=== PATIENT | male | born 1985 | race Caucasian/White ===

== ENCOUNTER 2016-07-02 17:39 | Emergency (ER) | payer OTHER ==
[2016-07-02 17:46] VITALS: TEMP 98.1; O2SAT 97
[2016-07-02] MEDS ORDERED: ONDANSETRON DISINTEGRATING 4 MG TAB PO ONE (18:07)
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
[2016-07-02] MEDS ORDERED: IOPAMIDOL (ISOVUE-300) 100 ML BTL IV ONE (18:57)
[2016-07-02 18:59] LABS: % IMMATURE GRANULYOCYTES 0.2 % (0.0-1.1); ABSOLUTE IMMATURE GRANULOCYTES 0.02 10^3/uL (0.00-0.10); ADD DIFF? NO; ADD MORPH? NO; ADD SCAN? NO; ATYPICAL LYMPHOCYTE FLAG 0 (0-99); FRAGMENT RBC FLAG 0 (0-99); HEMATOCRIT 48.8 % (40.0-51.0); HEMOGLOBIN 17.1 g/dL (13.7-17.5); LEFT SHIFT FLG 0 (0-99); LIPEMIA HEMOLYSIS FLAG 90 (0-99); MEAN CELL HEMOGLOBIN 31.1 pg (27.9-34.1); MEAN CELL VOLUME 88.7 fL (81.5-99.8); PLATELET CLUMPS FLAG 20 (0-99); PLATELET COUNT 235 10^3/uL (150-400); RED CELL DISTRIBUTION WIDTH 12.1 % (11.5-15.2)
[2016-07-02] MEDS ORDERED: HYDROmorphONE/DILAUDID 1 MG/ML SYR IVP ONE (19:24)
[2016-07-02 19:30] LABS: ANION GAP 11 mEq/L (8-16); CALCIUM 9.9 mg/dL (8.5-10.4); CARBON DIOXIDE 21 mEq/l (22-31); CHLORIDE 108 mEq/L (97-110); CREATININE 0.9 mg/dL (0.7-1.3); GLOMERULAR FILTRATION RATE > 60; GLUCOSE 89 mg/dL (70-100); SODIUM 140 mEq/L (134-144)
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
--- NOTE | 2016-07-02 20:14 | CT ---
Please see prior dictation of CT chest with contrast for findings related to CT of the abdomen and pe lvis in this patient.
--- NOTE | 2016-07-02 20:14 | CT ---
Please see prior dictation of CT chest with contrast for findings related to CT of the abdomen and pe lvis in this patient.
--- NOTE | 2016-07-02 20:14 | CT ---
Please see prior dictation of CT chest with contrast for findings related to CT of the abdomen and pe lvis in this patient.
[2016-07-02 20:15] VITALS: BP 126/66; PULSE 69; RESP 15
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
[2016-07-02] MEDS ORDERED: HYDROCOD/APAP 5/325 PREPACK#6 BTL TAKEHOME ONE (20:44)
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
== END 2016-07-02 20:54 | disposition home or self-care (01) ==
DX: S16.1XXA Strain of muscle, fascia and tendon at neck level, initial encounter (principal); S29.012A Strain of muscle and tendon of back wall of thorax, initial encounter; S39.012A Strain of muscle, fascia and tendon of lower back, initial encounter; S80.211A Abrasion, right knee, initial encounter; S79.922A Unspecified injury of left thigh, initial encounter; S49.92XA Unspecified injury of left shoulder and upper arm, initial encounter; V49.19XA Passenger injured in collision with other motor vehicles in nontraffic accident, initial encounter; Y92.410 Unspecified street and highway as the place of occurrence of the external cause
CPT/HCPCS: 82947-QW; 96374; J1170; Q9967

== ENCOUNTER 2016-07-08 02:30 | Emergency (ER) | payer OTHER ==
[2016-07-08] MEDS ORDERED: HYDROCOD/APAP 5/325 PREPACK#6 BTL TAKEHOME ONE (04:20)
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
== END 2016-07-08 04:35 | disposition home or self-care (01) ==
DX: M79.604 Pain in right leg (principal)

== ENCOUNTER 2018-02-05 05:03 | Emergency (ER) | payer SELFPAY ==
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
[2018-02-05] MEDS ORDERED: IBUPROFEN 600 MG TAB PO ONE (08:17)
[2018-02-05] MEDS ORDERED: PENICILLIN VK 500 MG TAB PO ONE (08:17)
[2018-02-05 08:53] VITALS: BP 132/92
== END 2018-02-05 08:52 | disposition home or self-care (01) ==
DX: K04.7 Periapical abscess without sinus (principal)

== ENCOUNTER 2018-02-14 23:49 | Emergency (ER) | payer SELFPAY ==
[2018-02-14 23:52] VITALS: BP 152/100
[2018-02-15] MEDS ORDERED: CLINDAMYCIN 150MG PREPACK#6 BTL TAKEHOME ONE (00:01)
[2018-02-15] MEDS ORDERED: CLINDAMYCIN 150 MG CAP PO ONE (00:01)
--- NOTE | 2018-02-15 00:06 | EDPHY ---
H & P Stated Complaint: tooth infection Time Seen by Provider: 02/14/18 23:53 HPI/ROS: HPI The patient presents with recurrent tooth pain present over the last 2-3 days. As the patient was seen in the emergency department recently for dental abscess. He was started on penicillin. He followed up with the dentist and was told he has an impacted wisdom tooth in his lower right. He has made arrangements for follow-up in about 3 weeks for extraction. However over the last 2-3 days he has had worsening tooth pain after finishing his course of penicillin. He does not have any fevers or chills. He does feel an area of swelling in the area. He does not have any difficulty swallowing. REVIEW OF SYSTEMS 10 systems were reviewed and negative with the exception of the elements mentioned in the history of present illness. PMHx: Healthy Soc Hx: Works at a [employer] PHYSICAL General Appearance: Alert, no distress Eyes: Pupils equal and round no pallor or injection ENT, Mouth: Right lower molars with caries, there is erythema along the gum line of the buccal surface of the mandible on the right with no areas of fluctuance Respiratory: Breathing comfortably Neurological: A&O, moves all extremities Skin: Warm and dry, no rashes Musculoskeletal: Neck is supple non tender Extremities: symmetrical, full range of motion Psychiatric: Patient is oriented X 3, there is no agitation Source: Patient Exam Limitations: No limitations - Personal History Current Tetanus/Diphtheria Vaccine: Unsure Current Tetanus Diphtheria and Acellular Pertussis (TDAP): Unsure - Medical/Surgical History Hx Asthma: No Hx Chronic Respiratory Disease: No Hx Diabetes: No Hx Cardiac Disease: No Hx Renal Disease: No Hx Cirrhosis: No Hx Alcoholism: No Hx HIV/AIDS: No Hx Splenectomy or Spleen Trauma: No Other PMH: DENIES - Social History Smoking Status: Heavy smoker Constitutional: Initial Vital Signs Temperature (C) 36.5 C 02/14/18 23:50 Heart Rate 92 02/14/18 23:50 Respiratory Rate 16 02/14/18 23:50 Blood Pressure 152/100 H 02/14/18 23:50 O2 Sat (%) 94 02/14/18 23:50 O2 Delivery Mode Room Air Allergies/Adverse Reactions: morphine Allergy (Verified 07/02/16 17:46) Home Medications: Medication Instructions Recorded Penicillin V Potassium [Penicillin 500 mg PO QID #28 tablet 02/05/18 VK] Clindamycin HCl [Clindamycin] 300 mg PO TID #30 cap 02/15/18 Medical Decision Making Differential Diagnosis: 32-year-old male with recurrent dental abscess despite course of penicillin. He is not systemically ill, he does not have any trismus or concern for deep space neck infection. I will treat him with clindamycin. He will call the dentist to arrange for follow-up. - Data Points Medications Given: Discontinued Medications Clindamycin (Clindamycin) 300 mg PO EDNOW ONE PRN Reason: Protocol Stop: 02/15/18 00:02 Last Admin: 02/15/18 00:13 Dose: 300 mg Clindamycin (Cleocin 150 Mg Prepack#6) 1 btl TAKEHOME EDNOW ONE PRN Reason: Protocol Stop: 02/15/18 00:02 Last Admin: 02/15/18 00:13 Dose: 1 btl Departure - Departure Disposition: Home, Routine, Self-Care Clinical Impression: Tooth abscess Condition: Good Instructions: Clindamycin (By mouth), Dental Abscess (ED) Referrals: [facility] [Outside] - As per Instructions Prescriptions: Clindamycin HCl [Clindamycin] 300 mg PO TID #30 cap
== END 2018-02-15 00:16 | disposition home or self-care (01) ==
DX: K04.7 Periapical abscess without sinus (principal); F17.200 Nicotine dependence, unspecified, uncomplicated

== ENCOUNTER 2018-03-07 00:04 | Emergency (ER) | payer SELFPAY ==
[2018-03-07 00:08] VITALS: BP 147/89
--- NOTE | 2018-03-07 00:18 | EDPHY ---
H & P Stated Complaint: RIGHT LOWER TOOTH PAIN, JUST FINISHED 2 WKS ABX Time Seen by Provider: 03/07/18 00:18 HPI/ROS: HPI CHIEF COMPLAINT: Right lower jaw line dental pain. HISTORY OF PRESENT ILLNESS: 33-year-old male, otherwise healthy denies any significant medical history however has been suffering from dental pain of his right lower jaw. He has been on clindamycin multiple times. He is due to follow up with his dentist next week for dental extraction. States completely recent antibiotic course. However over the last 24 hr had progression worsening of swelling and pain to the right lower jaw line right posterior 2nd molar. Patient requesting to be placed back on clindamycin. He states has worked well for him. Past Medical History: Denies significant medical Past Surgical History: Denies significant surgical history Social History: Denies drugs alcohol. Daily smoker. Family History: Noncontributory ROS REVIEW OF SYSTEMS: 10 Systems were reviewed and negative with the exception of the elements mentioned in the history of present illness. Exam Constitutional triage nursing summary reviewed, vital signs reviewed, awake/ alert. Eyes normal conjunctivae and sclera, EOMI, PERRLA. HENT oropharynx, no signs of Khang's, no [employer], no signs of significant oropharyngeal infection however his does to palpation over the 2nd right lower molar. No significant gumline abscess. normal inspection, atraumatic, moist mucus membranes, no epistaxis, neck supple/ no meningismus, no raccoon eyes. Respiratory clear to auscultation bilaterally, normal breath sounds, no respiratory distress, no wheezing. Cardiovascular rate normal, regular rhythm, no murmur, no edema, distal pulses normal. Gastrointestinal soft, non-tender, no rebound, no guarding, normal bowel sounds, no distension, no pulsatile mass. Genitourinary no CVA tenderness. Musculoskeletal no midline vertebral tenderness, full range of motion, no calf swelling, no tenderness of extremities, no meningismus, good pulses, neurovascularly intact. Skin pink, warm, & dry, no rash, skin atraumatic. Neurologic awake, alert and oriented x 3, AAOx3, moves all 4 extremities equally, motor intact, sensory intact, CN II-XII intact, normal cerebellar, normal vision, normal speech. Psychiatric normal mood/affect. Heme/Lymph/Immune no lymphadenopathy. Differential Diagnosis: Includes but is not limited to in a particular order acute dental pain, dental infection, Aveolitis, pulpitis, apical abscess Medical Decision Making: Plan for this patient recommend he has close follow- up with dentistry. Recommend not smoking. Clindamycin take-home pack. Clindamycin prescription. He understands take this with food, and eat a probiotics or yogurt. I do recommend he stop smoking. Return precautions discussed return if worsening swelling, pain, fever. Patient understands this. Source: Patient - Personal History Current Tetanus/Diphtheria Vaccine: Yes Current Tetanus Diphtheria and Acellular Pertussis (TDAP): Yes - Medical/Surgical History Hx Asthma: No Hx Chronic Respiratory Disease: No Hx Diabetes: No Hx Cardiac Disease: No Hx Renal Disease: No Hx Cirrhosis: No Hx Alcoholism: No Hx HIV/AIDS: No Hx Splenectomy or Spleen Trauma: No Other PMH: DENIES - Social History Smoking Status: Heavy smoker Constitutional: Initial Vital Signs Temperature (C) 36.7 C 03/07/18 00:07 Heart Rate 89 03/07/18 00:07 Respiratory Rate 18 03/07/18 00:07 Blood Pressure 147/89 H 03/07/18 00:07 O2 Sat (%) 99 03/07/18 00:07 O2 Delivery Mode Room Air Allergies/Adverse Reactions: morphine Allergy (Verified 07/02/16 17:46) Home Medications: Medication Instructions Recorded Clindamycin HCl [Clindamycin] 300 mg PO TID #21 cap 03/07/18 Departure - Departure Disposition: Home, Routine, Self-Care Clinical Impression: Pain, dental Condition: Good Instructions: Toothache (ED) Additional Instructions: 1. Antibiotics as prescribed 2. Do not smoke. 3. Return if worse. Referrals: NONE *PRIMARY CARE P,. [Primary Care Provider] - As per Instructions [facility] [Outside] - As per Instructions [facility] [Outside] - As per Instructions [facility] [Outside] - As per Instructions Dental [facility] [Outside] - As per Instructions Dental [facility] [Outside] - As per Instructions Prescriptions: Clindamycin HCl [Clindamycin] 300 mg PO TID #21 cap
[2018-03-07] MEDS ORDERED: CLINDAMYCIN 150MG PREPACK#6 BTL TAKEHOME ONE (00:21)
== END 2018-03-07 00:33 | disposition home or self-care (01) ==
DX: K08.89 Other specified disorders of teeth and supporting structures (principal); F17.200 Nicotine dependence, unspecified, uncomplicated

== ENCOUNTER 2018-03-26 19:56 | Emergency (ER) | payer SELFPAY ==
[2018-03-26 20:09] VITALS: BP 144/95
--- NOTE | 2018-03-26 20:20 | EDPHY ---
H & P Stated Complaint: c/o weak/feeling less mentally acute x 1 week, also c/o calf cramping today Time Seen by Provider: 03/26/18 20:19 HPI/ROS: HPI: This is a 33-year-old male who presents with Chief Complaint: c/o weak/feeling less mentally acute x 1 week, also c/o calf cramping today Location: Body Quality: Weakness Duration: 1 week Signs and Symptoms: No bleeding, no radiation, no numbness, no weakness, no tingling, no incontinence, no decreased range of motion, no swelling, no pain, no fever, no fever, no cough, no chest, headache, no dizziness Timing: Gradual onset, daily Severity: [id number] Context: Patient reports that for the last week he has felt generalized body weakness, less mentally acute, bilateral leg cramping right greater than left. He moved to the area 2 months ago. Works at [employer]. No primary care provider. He has felt warm but has no fever, chills. Denies leg swelling. Modifying Factors: None Comment: ROS: A comprehensive 10 system review of systems is otherwise negative aside from elements mentioned in the history of present illness. MEDICAL/SURGICAL/SOCIAL HISTORY: Medical history: hypoglycemia, sleep apnea Surgical history: Tonsillectomy Social history: Heavy smoker. CONSTITUTIONAL: Overweight, nontoxic appearing adult white male, awake and alert, no obvious distress HEENT: Atraumatic and normocephalic. NECK: supple, no midline tenderness, flexion 45 degrees, extension 45 degrees, right and left lateral flexion 45 degrees. No meningismus. Cardiovascular: Normal S1/S2, regular rate, regular rhythm, without murmur rub or gallop. PULMONARY/CHEST: Symmetrical and nontender. no crepitus. Clear to auscultation bilaterally. Good air movement. No accessory muscle usage. ABDOMEN: Soft, nondistended, nontender, no ecchymosis. EXTREMITIES: 2/2 pulses, strength 5/5, positive Homans sign right calf. Negative Homans sign left calf. Legs are same size. No palpable cords. No varicose vein. good light touch sensation. no deformities, no clubbing, no cyanosis or edema. NEUROLOGICAL: no focal neuro deficits. GCS 15. Light touch sensation intact. SKIN: Warm and dry, no erythema. no rash. Good capillary refill. Source: Patient Exam Limitations: No limitations - Medical/Surgical History Hx Asthma: No Hx Chronic Respiratory Disease: No Hx Diabetes: No Hx Cardiac Disease: No Hx Renal Disease: No Hx Cirrhosis: No Hx Alcoholism: No Hx HIV/AIDS: No Hx Splenectomy or Spleen Trauma: No Other PMH: hypoglycemia, sleep apnea, tonsillectomy - Social History Smoking Status: Heavy smoker Constitutional: Initial Vital Signs Temperature (C) 36.4 C 03/26/18 20:05 Heart Rate 96 03/26/18 20:05 Respiratory Rate 18 03/26/18 20:05 Blood Pressure 144/95 H 03/26/18 20:05 O2 Sat (%) 98 03/26/18 20:05 O2 Delivery Mode Room Air Allergies/Adverse Reactions: morphine Allergy (Verified 03/26/18 20:09) Home Medications: Medication Instructions Recorded Ibuprofen 03/26/18 Medical Decision Making ED Course/Re-evaluation: Vital signs reviewed and show mildly elevated blood pressure. IV access and laboratory studies ordered. Will start with D-dimer to rule out DVT. Patient will need referral to [facility] to establish primary care. 2100: Notified by RN that patient eloped from the emergency room prior to laboratory studies being obtained. This patient was seen under the supervision of my secondary supervising physician. I evaluated care for this patient independently. Discussed this patient with Dr. Zhu. Differential Diagnosis: Weakness including but not limited to electrolyte abnormality, depression, anxiety, CVA, spinal cord abnormality, and infectious causes. Departure - Departure Disposition: Against Medical Advice
== END 2018-03-26 20:52 | disposition left against medical advice (07) ==
DX: R53.1 Weakness (principal)